=== PATIENT | female | born 1990 | race Caucasian/White ===

== ENCOUNTER 2017-10-28 04:20 | Emergency (ER) | END 2017-10-28 05:43 | disposition home or self-care (01) ==

== ENCOUNTER 2018-07-22 20:43 | Emergency (ER) | payer OTHER ==
[~2018-07-22] VITALS: Ht 170.2 cm; Wt 71.8 kg
[~2018-07-22 20:43] MED LIST: FLUT9.9S NASAL; GUAI-111 PO; IBUP-1542 PO
[2018-07-22 20:45] VITALS: BP 167/93; PULSE 97; RESP 16; Ht 170.2 cm; Wt 71.8 kg
[2018-07-22] MEDS ORDERED: KETOROLAC 60 MG INJ IM STA (21:08)
[2018-07-22] MEDS ORDERED: HYDR-4011 PO (21:30)
[2018-07-22] MEDS ORDERED: NAPR-985 PO (21:30)
--- NOTE | 2018-07-23 01:19 | ERD ---
ER Documentation Chief Complaint Chief Complaint Pt reports tylenol 3 not helping pain after root canal HPI 27-year-old female presenting to the emergency department complaining of severe left upper dental pain after root canal 3 days ago. Patient has been taking Tylenol 3 and ibuprofen without relief. Her current pain level is rated 10/10 in severity and constant. She denies any fevers or chills or other symptoms at this time. She is also taking amoxicillin prescribed by her dentist. ROS All systems reviewed and are negative except as per history of present illness. Medications Home Meds Active Scripts Hydrocodone/Acetaminophen ([place]wood 5-325 Tablet) 1 Each Tablet, 1 TAB PO Q6H PRN for PAIN, #7 TAB Prov:MAGDY TORO PA-C 07/22/18 Naproxen* (Naprosyn*) 500 Mg Tablet, 500 MG PO BID PRN for PAIN AND/OR INFLAMMATION, #30 TAB Prov:MAGDY TORO PA-C 07/22/18 Ibuprofen* (Motrin*) 600 Mg Tab, 600 MG PO Q6, #30 TAB Prov:CHITO,MELYSSA 10/28/17 Fluticasone Propionate (Flonase Allergy Relief) 9.9 Ml [place].susp, 1 SPRAY NASAL BID, #1 BOTTLE TO EACH NOSTRIL Prov:CHITO,MELYSSA 10/28/17 Guaifenesin/Pseudoephedrne HCl (Mucinex D ER 600-60 mg Tablet) 1 Each Tab.er.12h, 1 EACH PO 1200 for 5 Days, #20 TAB Prov:CHITO,MELYSSA 10/28/17 Allergies Allergies: Coded Allergies: No Known Allergy (Unverified , 02/08/12) PMhx/Soc Medical and Surgical Hx: pt denies Medical Hx, pt denies Surgical Hx History of Surgery: No Anesthesia Reaction: No Hx Neurological Disorder: No Hx Respiratory Disorders: No Hx Cardiac Disorders: No Hx Psychiatric Problems: No Hx Miscellaneous Medical Probl: No Hx Alcohol Use: No Hx Substance Use: No Hx Tobacco Use: No Smoking Status: Never smoker FmHx Family History: No diabetes Physical Exam Vitals Vital Signs Date Temp Pulse Resp B/P (MAP) Pulse Ox O2 O2 Flow FiO2 Time Delivery Rate 07/22/18 97.9 97 16 167/93 100 20:45 (117) Physical Exam Const: No acute distress Head: Atraumatic Eyes: Normal Conjunctiva ENT: Normal External Ears, Nose and Mouth. No obvious dental abscess. No significant gingival swelling or erythema noted. Neck: Full range of motion. No meningismus. Resp: No respiratory distress. Skin: No petechiae or rashes Ext: No cyanosis, or edema Neur: Awake and alert Psych: Normal Mood and Affect Results 24 hrs Laboratory Tests Test 07/22/18 21:21 POC Beta HCG, Qualitative NEGATIVE Current Medications Medications Dose Sig/Rocio Start Time Status Last (Trade) Ordered Route PRN Stop Time Admin Dose Reason Admin Ketorolac 60 mg ONCE STAT 07/22/18 DC 07/22/18 Tromethamine IM 21:08 21:29 (Toradol) 07/22/18 21:10 Procedures/MDM 27-year-old female presented to the emergency department complaining of severe dental pain after root canal 3 days ago. Patient was administered Toradol in the department with good response. She will be given short course of [place], 7 tabs. Her cures report was consulted which only showed 1 recent prescription fill of Tylenol 3 which is consistent with her history. Low suspicion for doctor shopping or drug-seeking behavior. Patient was also given prescription for naproxen. She was otherwise stable for discharge and was advised to return to the department immediately for any new or worsening or concerning symptoms. Patient's blood pressure was elevated (>120/80) but appears stable without evidence of hypertension emergency or urgency. The patient is to follow-up and pursue outpatient monitoring and therapy with their primary care physician within 1 week and return immediately if they have any new, worsening, or concerning symptoms. Departure Diagnosis: Primary Impression: Pain, dental Condition: Fair Patient Instructions: Dental Pain Additional Instructions: Call your primary care doctor TOMORROW for an appointment during the next 1-2 days.See the doctor sooner or return here if your condition worsens before your appointment time. MAGDY TORO PA-C July 23, 2018 01:19
== END 2018-07-22 22:12 | disposition home or self-care (01) ==
LOC: FTE 20:43
DX: K08.89 Other specified disorders of teeth and supporting structures (principal)
CPT/HCPCS: 81025; 96372; J1885; Z7502